=== PATIENT | male | born 1945 | race Two or more races ===

== ENCOUNTER → 2025-06-01 | Outpatient (CLI) | payer MEDICARE, MEDICAID, SELFPAY ==
--- NOTE | 2025-06-01 11:00 | XR_ITS ---
Examination: CT chest with intravenous contrast CT chest without intravenous contrast 2-D reconstructions Date and time of exam:June 01, 2025 1123 hours INDICATIONS: Chest pressure coughing shortness of breath chest pain one year CTDI:vol (mGy) 25 DLP: (mGycm) 806 Technique: Multiple axial sections of the thorax have been obtained. 3 mm slice thickness, from the hemidiaphragms to above the apices of the lungs. Mediastinal and lung density settings have been obtained. Intravenous contrast administered 60 cc [id number]. Noncontrast images have also been obtained. 2-D sagittal coronal images obtained. Low dose protocols were performed. One or more of the following dose reduction techniques were used; automated exposure control, adjustment of the mA and/or KV according to patient size, use of iterative reconstruction technique. Findings: No thoracic aortic aneurysm dilatation or dissection No pulmonary artery emboli on this non-CTA study No paratracheal tracheobronchial or bronchopulmonary adenopathy 4 mm pulmonary nodule left lower lobe image 191 Mild vascular congestion. No lobar pneumonia No focal liver lesions Gallstones Spleen not enlarged Fatty infiltration throughout the pancreas Normal adrenal mass IMPRESSION: No mediastinal lymphadenopathy 4 mm pulmonary nodule left lower lobe, with this study is baseline consider 6 month follow-up CT chest without contrast Mild vascular congestion No pneumonia or pulmonary edema Cholelithiasis
== END | disposition home or self-care (01) ==
PROVIDERS: PCP Nurse Practitioner Family; Referring Provider Nurse Practitioner Family; Visit Provider Nurse Practitioner Family
DX: R91.1 Solitary pulmonary nodule (principal); R09.89 Other specified symptoms and signs involving the circulatory and respiratory systems; K80.20 Calculus of gallbladder without cholecystitis without obstruction
CPT/HCPCS: 71270; A4649; Q9967

== ENCOUNTER → 2025-08-08 | Outpatient (CLI) | payer MEDICARE, MEDICAID, SELFPAY ==
--- NOTE | 2025-08-08 | XR_ITS ---
Examination: Lumbar spine, 5 views Technique: Lumbar spine AP, lateral, coned lateral lower lumbar spine, bilateral obliques 5 views Exam date and time: August 08, 2025, 11:42 a.m. INDICATIONS: Low back pain beginning 2 weeks ago. FINDINGS: Severe osteopenia Lumbar levoscoliosis 12 degrees Prominent facet arthropathy Diffuse lumbar degenerative disc disease, advanced L1-L2 No lumbar fracture IMPRESSION: Diffuse lumbar degenerative disc disease, advanced L1-L2
== END | disposition home or self-care (01) ==
LOC: CDIM 11:13
PROVIDERS: Referring Provider Nurse Practitioner Family; Visit Provider Nurse Practitioner Family
DX: M51.360 Other intervertebral disc degeneration, lumbar region with discogenic back pain only (principal)
CPT/HCPCS: 72110

== ENCOUNTER → 2025-09-18 | Outpatient (CLI) | payer MEDICARE, MEDICAID, SELFPAY ==
--- NOTE | 2025-09-18 10:47 | XR_ITS ---
EXAMINATION: PA lateral chest 2 views TECHNIQUE: Upright PA lateral chest 2 views Date and time: September 18, 2025, 1110 hours, comparison September 18, 2023 INDICATIONS: Coughing 1 week. FINDINGS: Subsegmental atelectasis right base Moderate elevation right hemidiaphragm Mild prominence left ventricle No lobar pneumonia Old right-sided rib fractures IMPRESSION: No lobar pneumonia
== END | disposition home or self-care (01) ==
LOC: CDIM 10:33
PROVIDERS: PCP Nurse Practitioner Family; Referring Provider Nurse Practitioner Family; Visit Provider Nurse Practitioner Family
DX: R06.2 Wheezing (principal); R05.9 Cough, unspecified
CPT/HCPCS: 71046

== ENCOUNTER → 2025-10-10 | Outpatient (CLI) | payer MEDICARE, MEDICAID, SELFPAY ==
--- NOTE | 2025-10-10 13:30 | XR_ITS ---
Examination: MRI lumbar spine without contrast Date and time of exam: October 10, 2025, 1452 hours INDICATIONS: Low back pain radiating down the feet months Technique: Multiple MRI axial and sagittal sections lumbar spine. Sagittal T2-weighted images, TR 3500, TE 118 T1 weighted transverse sections, TR 688 T8.5, T2-weighted sagittal sections T1 weighted sagittal sections TR 621, TE 30 T2 axial sections, TR 4, 190, TE 84. Findings: Grade 1 anterolisthesis L4 on L5 No lumbar fracture Diffuse lumbar disc desiccation Mild disc narrowing posteriorly L5-S1 L5-S1 3 mm central lumbar disc bulge L4-L5 small foraminal disc bulges each 3 mm but no ganglionic compression L3-L4 moderate to severe overall spinal stenosis, 6 mm central lumbar disc bulge, severe facet arthropathy indenting the lateral margins of the thecal sac, 8 mm right foraminal disc bulge producing moderate right L3 ganglionic compression L2-L3 no disc protrusion L1-L2 no disc protrusion IMPRESSION: Diffuse lumbar degenerative disc disease L5-S1 3 mm central lumbar disc bulge L3-L4 moderate to severe overall spinal stenosis including moderate right L3 ganglionic compression
== END | disposition home or self-care (01) ==
PROVIDERS: PCP Nurse Practitioner Family; Referring Provider Nurse Practitioner Family; Visit Provider Nurse Practitioner Family
DX: M51.360 Other intervertebral disc degeneration, lumbar region with discogenic back pain only (principal); M51.370 Other intervertebral disc degeneration, lumbosacral region with discogenic back pain only; M48.061 Spinal stenosis, lumbar region without neurogenic claudication; G95.20 Unspecified cord compression
CPT/HCPCS: 72148